=== PATIENT | male | born 1975 | race Caucasian/White ===

== ENCOUNTER 2018-10-24 13:36 | Emergency (ER) | payer OTHER ==
[~2018-10-24] VITALS: Ht 182.9 cm; Wt 113.4 kg
[2018-10-24 13:41] VITALS: BP 147/92
[2018-10-24] MEDS ORDERED: AUGMENTIN 875-1 EACH PO (13:51)
== END 2018-10-24 14:19 | disposition home or self-care (01) ==
LOC: ER 13:36
DX: S61.432A Puncture wound without foreign body of left hand, initial encounter (principal); W55.01XA Bitten by cat, initial encounter; Y93.89 Activity, other specified; Y92.89 Other specified places as the place of occurrence of the external cause; Y99.8 Other external cause status